=== PATIENT | female | born 1940 | race Caucasian/White ===

== ENCOUNTER 2021-04-23 21:20 | Emergency (ER) | payer MEDICARE ==
--- NOTE | 2021-04-23 21:43 | ED General ---
General Stated Complaint: TIA Source of Information: Patient Exam Limitations: No Limitations (CHARITO SCHMID APRN) History of Present Illness Date Seen by Provider: Apr 23, 2021 Time Seen by Provider: 21:40 Initial Comments To ER by EMS with reports of possible TIA. She was last known to be well about 8 PM this evening when they noticed some left arm left leg left facial drooping and weakness just after 8 PM. She has a history of stroke but reportedly has no lasting noticeable deficit. She just moved to the area, living with her son here in [place]. She is from [facility] and had a stroke about 3 years ago while there. She did receive TPA for that. Does not have a PCP here. Is on plavix but no OAC. Timing/Duration: 1-3 Hours Severity: Moderate Associated Systoms: Denies Symptoms (CHARITO SCHMID APRN) Allergies and Home Medications Allergies Coded Allergies: No Known Drug Allergies (Unverified , 04/23/21) Patient Home Medication List Home Medication List Reviewed: Yes (CHARITO SCHMID APRN) Review of Systems Review of Systems Constitutional: see HPI EENTM: see HPI Respiratory: no symptoms reported Cardiovascular: no symptoms reported Genitourinary: no symptoms reported Musculoskeletal: see HPI Skin: no symptoms reported Psychiatric/Neurological: See HPI Hematologic/Lymphatic: No Symptoms Reported (CHARITO SCHMID APRN) Physical Exam Vital Signs Vital Signs - First Documented 04/23/21 21:52 Temp 36.1 Pulse 59 Resp 20 B/P (MAP) 123/76 (92) Pulse Ox 93 O2 Delivery Room Air (JOSE VILLASEÑOR MD) Vital Signs Capillary Refill : (CHARITO SCHMID APRN) Height, Weight, BMI Height: '" Weight: lbs. oz. kg; BMI Method: General Appearance: No Apparent Distress, WD/WN, Other (Alert and oriented GCS 15 makes good eye contact answers questions appropriately. Heart rate is 58 sinus, blood pressure 123/76. Respiratory rate 14. Oxygen 93% room air. She is noted to be yawning quite frequently during conversation.) Eyes: Bilateral Eye Normal Inspection, Bilateral Eye PERRL, Bilateral Eye EOMI HEENT: PERRL/EOMI, TMs Normal Neck: Full Range of Motion, Normal Inspection Respiratory: No Accessory Muscle Use, No Respiratory Distress Cardiovascular: Normal Peripheral Pulses, Bradycardia Gastrointestinal: Normal Bowel Sounds, Non Tender, Soft Extremity: Normal Capillary Refill, Non Tender Neurologic/Psychiatric: Alert, Oriented x3, Facial Droop, Motor Weakness, Sensory Deficit Skin: Normal Color, Warm/Dry (CHARITO SCHMID APRN) Progress/Results/Core Measures Suspected Sepsis SIRS Temperature: Pulse: Respiratory Rate: Laboratory Tests 04/23/21 21:30: White Blood Count 6.9 Blood Pressure / Mean: Laboratory Tests 04/23/21 21:30: Creatinine 0.87, INR Comment 1.0, Platelet Count 187, Total Bilirubin 0.6 (CHARITO SCHMID APRN) Results/Orders Lab Results Laboratory Tests Test 04/23/21 21:27 04/23/21 21:30 Range/Units Glucometer 119 H 70-110 MG/DL White Blood Count 6.9 4.3-11.0 10^3/uL Red Blood Count 4.09 3.80-5.11 10^6/uL Hemoglobin 12.1 11.5-16.0 g/dL Hematocrit 37 35-52 % Mean Corpuscular Volume 91 80-99 fL Mean Corpuscular Hemoglobin 30 25-34 pg Mean Corpuscular Hemoglobin Concent 32 32-36 g/dL Red Cell Distribution Width 13.6 10.0-14.5 % Platelet Count 187 130-400 10^3/uL Mean Platelet Volume 12.3 H 9.0-12.2 fL Immature Granulocyte % (Auto) 0 % Neutrophils (%) (Auto) 72 42-75 % Lymphocytes (%) (Auto) 18 12-44 % Monocytes (%) (Auto) 8 0-12 % Eosinophils (%) (Auto) 1 0-10 % Basophils (%) (Auto) 0 0-10 % Neutrophils # (Auto) 5.0 1.8-7.8 10^3/uL Lymphocytes # (Auto) 1.3 1.0-4.0 10^3/uL Monocytes # (Auto) 0.6 0.0-1.0 10^3/uL Eosinophils # (Auto) 0.1 0.0-0.3 10^3/uL Basophils # (Auto) 0.0 0.0-0.1 10^3/uL Immature Granulocyte # (Auto) 0.0 0.0-0.1 10^3/uL Sodium Level 138 135-145 MMOL/L Potassium Level 3.0 L 3.6-5.0 MMOL/L Chloride Level 100 98-107 MMOL/L Glucose Level 114 H 70-105 MG/DL Calcium Level 9.7 8.5-10.1 MG/DL Corrected Calcium 9.7 8.5-10.1 MG/DL Total Protein 6.4 6.4-8.2 GM/DL Albumin 4.0 3.2-4.5 GM/DL (JOSE VILLASEÑOR MD) My Orders Orders - JOSE VILLASEÑOR MD Ct Angio Head/Neck (04/23/21 21:58) (JOSE VILLASEÑOR MD) Vital Signs/I&O 04/23/21 21:52 Temp 36.1 Pulse 59 Resp 20 B/P (MAP) 123/76 (92) Pulse Ox 93 O2 Delivery Room Air (JOSE VILLASEÑOR MD) Vital Signs/I&O Capillary Refill : (CHARITO SCHMID APRN) Progress Note : Time: 21:59 Progress Note ANGIO order edited for the dye study per CVA protocol in spite of BUN/CREAT and GFR not being resulted in the computer. (JOSE VILLASEÑOR MD) Departure Communication (Admissions) Family Conversation NAME: MERARY WANG [facility] REC#: [id number] PT STATUS: REG ER : 1940 PHYSICIAN: JOSE VILLASEÑOR MD ADMIT DATE: 04/23/21/ER Draft Date of Exam:04/23/21 CT ANGIO HEAD/NECK PROCEDURE: CT angiography of the head and CT angiography of the neck with and without contrast. TECHNIQUE: Contiguous noncontrast images were obtained from the skull base through the vertex. After intravenous contrast administration, helical CT angiography of the neck was performed. Source data was reformatted into 3D MIP projections. Delayed post contrast acquisition was also obtained. Auto Exposure Controls were utilized during the CT exam to meet ALARA standards for radiation dose reduction. INDICATION: Left-sided weakness. Neurodeficit. COMPARISON: Noncontrast CT head from earlier the same day. FINDINGS: CTA NECK: Included portions of the aortic arch are unremarkable. Major arch vessels are tortuous, but are patent. There is minimal calcified atherosclerosis of the left carotid bulb and origin of the left internal carotid artery. By NASCET criteria, there is no focal significant stenosis. Otherwise, the bilateral internal carotid arteries are normal in course and caliber. There is no evidence of dissection or thrombosis. Within the posterior circulation, right vertebral artery appears to be slightly dominant. Vertebral arteries are otherwise patent from their origins to their confluence of the basilar artery. No acute abnormality is seen. There is no evidence of dissection or thrombosis. Osseous structures show age-related degenerative changes. No acute bony abnormality is seen. CTA [place] OF EVANS: This exam confirms right M1 occlusion. Right A1 segment is absent. This however is of uncertain acuity. There is otherwise normal enhancement of the bilateral anterior cerebral arteries. This is likely via patent anterior communicating artery. The left anterior and middle cerebral arteries show normal enhancement. Within the posterior circulation, the basilar artery has a normal appearance. There is normal enhancement of the bilateral superior cerebellar and bilateral posterior cerebral arteries. There is no evidence of large vessel occlusion, aneurysm or vascular malformation. Right posterior communicating artery is patent. POSTCONTRAST CT HEAD: Postcontrast images show no abnormal areas of enhancement. Again, there is no large area of loss of normal shane-white matter junction differentiation to suggest evolving acute territorial infarct on the right. There is redemonstration of relative hypodensity of the anterior left basal ganglia, which again has appearance suggestive of potential acute infarct, but is stable compared to earlier the same day. No intra-axial or extra-axial intracranial hemorrhage is seen. IMPRESSION: 1. Right M1 occlusion. 2. Right A1 segment is unopacified as well, but this may be on a chronic diminutive basis. 3. Unremarkable CTA of the neck. Results were discussed with Charito Schmid by Dr. Joseph at 2235 hours on 04/23/2021. Dictated on workstation # [id number] Dict: 04/23/212235 Trans: 04/23/21 224 E [id number] Interpreted by: RICHARD JOSEPH MD Electronically signed by: NAME: MERARY WANG [facility] REC#: [id number] PT STATUS: REG ER : 1940 PHYSICIAN: CHARITO SCHMID S[employer]IOUR INSIGHT MANAGER ADMIT DATE: 04/23/21/ER Draft Date of Exam:04/23/21 CT HEAD WO-R/O STROKE PROCEDURE: CT head w/o r/o stroke. TECHNIQUE: Multiple contiguous axial images were obtained through the brain without the use of intravenous contrast. Auto Exposure Controls were utilized during the CT exam to meet ALARA standards for radiation dose reduction. INDICATION: Left-sided weakness. Neurodeficit. COMPARISON: None. FINDINGS: There is 1.6 x 2.0 cm hypodensity within the anterior left basal ganglia. Appearance is concerning for a small acute infarct. There is no prior available for comparison. Note is also made of hyperdense appearance to the right MCA (image 23, series 2). There is however no large area of loss of normal shane-white matter junction differentiation in the distribution of right MCA to suggest evolving acute territorial infarct. Ventricles and cortical sulci are otherwise mildly is prominent consistent with age-related parenchymal volume loss. There are also scattered and confluent areas of decreased attenuation within the periventricular and subcortical deep white matter. These have the appearance suggestive of chronic small vessel ischemic changes, although again there is no prior available for comparison. No acute intra-axial or extra-axial intracranial hemorrhage is seen. Bony calvarium is intact. Paranasal sinuses and mastoid air cells are clear. IMPRESSION: 1. Findings suspicious for hyperdense right MCA. Correlation with CTA is recommended. 2. Area of diminished attenuation within the anterior left basal ganglia. Again, overall appearance is concerning for potential acute infarct. 3. Background age-related parenchymal volume loss and small vessel ischemic changes in the deep white matter; likely chronic. Report was called to Charito Schmid APRN at 10:08 p.m., by catalina. Dictated on workstation # [id number] Dict: 04/23/212158 Trans: 04/23/212208 CATALINA [id number] Interpreted by: RICHARD JOSEPH MD Electronically signed by: (CHARITO SCHMID APRN) Impression Primary Impression: Acute right MCA stroke Disposition: XF SHT-TRM HOSP Condition: Stable Transfer Transfer Reason: Exceeds level of care Time Spoke to Accepting Phy: 22:52 Transfer Progress Notes 2253-Noncontrast CT shows concern for hyperdense MCA. The angiogram head and neck confirms that finding. I spoke with Dr. Joseph from radiology. I then spoke with Dr. Wallis from the [facility] stroke service who recommends proceeding with TPA administration and then transporting the patient to their facility for potential endovascular therapy. I discussed the risks of TPA including potential fatal bleeding as well as the benefits including to dissolve the clot causing her symptoms. She would like to proceed with getting the TPA. Her son is at the bedside and agrees. She has had this before about 3 years ago with her last stroke in [facility] and ended up without any stroke deficit. [facility] declined flight due to weather. [facility] notified and dispatched. (CHARITO SCHMID APRN) NIH Stroke Scale NIH Stroke Scale NIH : Select: Initial Level of Consciousness: 0=Alert Level of Consciousness-Questio: 0=Answers both month/age LOC Commands: 0=Performs both tasks Gaze: 0=Normal Visual Patel: 0=No visual loss Facial Movement (Facial Paresi: 2=Partial paralysis Motor Function-Arms Right: 0=No drift Motor Function-Arms Left: 4=No movement Motor Function-Legs Right: 0=No drift Motor Function-Legs Left: 4=No movement Limb Ataxia: 2=Present in two limbs Sensory: 1=Mild to Moderate loss Best Language: 0=No aphasia Dysarthria: 1=Mild to moderate loss Extinction & Inattention: 0=No abnormality NIH Stroke Scale Score: 14 (CHARITO SCHMID APRN) CHARITO SCHMID APRN Apr 23, 2021 21:43 JOSE VILLASEÑOR MD Apr 23, 2021 22:00
[2021-04-23 21:47] LABS: BASOPHILS % (AUTO) 0 % (0-10); EOSINOPHILS # (AUTO) 0.1 10^3/uL (0.0-0.3); EOSINOPHILS % (AUTO) 1 % (0-10); HEMATOCRIT 37 % (35-52); HEMOGLOBIN 12.1 g/dL (11.5-16.0); LYMPHOCYTES # (AUTO) 1.3 10^3/uL (1.0-4.0); LYMPHOCYTES % (AUTO) 18 % (12-44); MEAN CORPUSCULAR HEMOGLOBIN 30 pg (25-34); MEAN CORPUSCULAR HGB CONC 32 g/dL (32-36); MEAN CORPUSCULAR VOLUME 91 fL (80-99); MEAN PLATELET VOLUME 12.3 fL (9.0-12.2); MONOCYTES # (AUTO) 0.6 10^3/uL (0.0-1.0); MONOCYTES % (AUTO) 8 % (0-12); NEUTROPHILS % (AUTO) 72 % (42-75); PLATELET COUNT 187 10^3/uL (130-400); WHITE BLOOD COUNT 6.9 10^3/uL (4.3-11.0)
[2021-04-23 21:56] LABS: CHLORIDE 100 MMOL/L (98-107); SODIUM 138 MMOL/L (135-145)
[2021-04-23 21:57] LABS: CALCIUM 9.7 MG/DL (8.5-10.1)
[2021-04-23 21:58] LABS: GLUCOSE 114 MG/DL (70-105)
[2021-04-23 21:59] LABS: FIBRIN DEGRADATION PRODUCTS 0.63 UG/ML (0.00-0.49); PROTHROMBIN TIME PATIENT 13.4 SEC (12.2-14.7); TOTAL PROTEIN 6.4 GM/DL (6.4-8.2)
[2021-04-23 22:00] LABS: BILIRUBIN,TOTAL 0.6 MG/DL (0.1-1.0); CARBON DIOXIDE 25 MMOL/L (21-32)
[2021-04-23 22:02] LABS: ALKALINE PHOSPHATASE 56 U/L (40-136); CREATININE SERUM 0.87 MG/DL (0.60-1.30); GFR ESTIMATED 68
[2021-04-23 22:03] LABS: BUN/CREATININE RATIO 20
[2021-04-23 22:05] LABS: ALANINE AMINOTRANSFERASE 14 U/L (0-55)
--- NOTE | 2021-04-23 22:11 | Diagnostic Imaging Report ---
PROCEDURE: CT head w/o r/o stroke. TECHNIQUE: Multiple contiguous axial images were obtained through the brain without the use of intravenous contrast. Auto Exposure Controls were utilized during the CT exam to meet ALARA standards for radiation dose reduction. INDICATION: Left-sided weakness. Neurodeficit. COMPARISON: None. FINDINGS: There is 1.6 x 2.0 cm hypodensity within the anterior left basal ganglia. Appearance is concerning for a small acute infarct. There is no prior available for comparison. Note is also made of hyperdense appearance to the right MCA (image 23, series 2). There is however no large area of loss of normal shane-white matter junction differentiation in the distribution of right MCA to suggest evolving acute territorial infarct. Ventricles and cortical sulci are otherwise mildly is prominent consistent with age-related parenchymal volume loss. There are also scattered and confluent areas of decreased attenuation within the periventricular and subcortical deep white matter. These have the appearance suggestive of chronic small vessel ischemic changes, although again there is no prior available for comparison. No acute intra-axial or extra-axial intracranial hemorrhage is seen. Bony calvarium is intact. Paranasal sinuses and mastoid air cells are clear. IMPRESSION: 1. Findings suspicious for hyperdense right MCA. Correlation with CTA is recommended. 2. Area of diminished attenuation within the anterior left basal ganglia. Again, overall appearance is concerning for potential acute infarct. 3. Background age-related parenchymal volume loss and small vessel ischemic changes in the deep white matter; likely chronic. Report was called to Abhinav Schmid APRN at 10:08 p.m., by cale. Dictated by: Dictated on workstation # [id number]
[2021-04-23] MEDS ORDERED: TENECTEPLASE 50 MG VIAL IV ONE (22:45)
[2021-04-23] MEDS ORDERED: ALTEPLASE 100 MG/VIAL (ACTIVASE) ONE (22:47)
--- NOTE | 2021-04-23 22:50 | Diagnostic Imaging Report ---
PROCEDURE: CT angiography of the head and CT angiography of the neck with and without contrast. TECHNIQUE: Contiguous noncontrast images were obtained from the skull base through the vertex. After intravenous contrast administration, helical CT angiography of the neck was performed. Source data was reformatted into 3D MIP projections. Delayed post contrast acquisition was also obtained. Auto Exposure Controls were utilized during the CT exam to meet ALARA standards for radiation dose reduction. INDICATION: Left-sided weakness. Neurodeficit. COMPARISON: Noncontrast CT head from earlier the same day. FINDINGS: CTA NECK: Included portions of the aortic arch are unremarkable. Major arch vessels are tortuous, but are patent. There is minimal calcified atherosclerosis of the left carotid bulb and origin of the left internal carotid artery. By NASCET criteria, there is no focal significant stenosis. Otherwise, the bilateral internal carotid arteries are normal in course and caliber. There is no evidence of dissection or thrombosis. Within the posterior circulation, right vertebral artery appears to be slightly dominant. Vertebral arteries are otherwise patent from their origins to their confluence of the basilar artery. No acute abnormality is seen. There is no evidence of dissection or thrombosis. Osseous structures show age-related degenerative changes. No acute bony abnormality is seen. CTA KNI[place] OF EVANS: This exam confirms right M1 occlusion. Right A1 segment is absent. This however is of uncertain acuity. There is otherwise normal enhancement of the bilateral anterior cerebral arteries. This is likely via patent anterior communicating artery. The left anterior and middle cerebral arteries show normal enhancement. Within the posterior circulation, the basilar artery has a normal appearance. There is normal enhancement of the bilateral superior cerebellar and bilateral posterior cerebral arteries. There is no evidence of large vessel occlusion, aneurysm or vascular malformation. Right posterior communicating artery is patent. POSTCONTRAST CT HEAD: Postcontrast images show no abnormal areas of enhancement. Again, there is no large area of loss of normal shane-white matter junction differentiation to suggest evolving acute territorial infarct on the right. There is redemonstration of relative hypodensity of the anterior left basal ganglia, which again has appearance suggestive of potential acute infarct, but is stable compared to earlier the same day. No intra-axial or extra-axial intracranial hemorrhage is seen. IMPRESSION: 1. Right M1 occlusion. 2. Right A1 segment is unopacified as well, but this may be on a chronic diminutive basis. 3. Unremarkable CTA of the neck. Results were discussed with Abhinav Schmid by Dr. Marti at 2235 hours on 04/23/2021. Dictated by: Dictated on workstation # [id number]
--- NOTE | 2021-04-23 22:57 | Diagnostic Imaging Report ---
INDICATION: stroke COMPARISON: None FINDINGS: Single frontal view of the chest demonstrates mild cardiomegaly. Pulmonary vasculature, however, is within normal limits. The lungs are well aerated and clear. No large pleural effusion or pneumothorax is seen. The visualized osseous structures show no acute abnormalities. IMPRESSION: 1. Mild cardiomegaly, but no evidence of failure or focal infiltrate. Dictated by: Dictated on workstation # [id number]
[2021-04-23] MEDS ORDERED: LACTATED RINGERS 1,000 ML IV SCH (23:15)
[2021-04-23 23:35] VITALS: BP 130/53
== END 2021-04-23 23:35 | disposition short-term general hospital (02) ==
LOC: EDBD 21:24 → ER 21:24
DX: I63.511 Cerebral infarction due to unspecified occlusion or stenosis of right middle cerebral artery (principal); Z79.02 Long term (current) use of antithrombotics/antiplatelets
CPT/HCPCS: 36415; 70450; 70496; 70498; 71045; 80053; 82947; 84484; 85025; 85379; 85610; 85730; 92977; 93005; 93041; 99291